=== PATIENT | female | born 1935 | race African-American/Black ===

== ENCOUNTER 2022-01-30 15:02 | Emergency (ER) | payer MEDICARE, OTHER ==
[~2022-01-30] VITALS: Ht 160 cm; Wt 75.0 kg
[2022-01-30 16:38] LABS: BASOPHILS % 0.7 % (0.0-2.0); HEMATOCRIT. 34.8 % (36.0-48.0); HEMOGLOBIN. 11.3 g/dL (12.0-16.0); LYMPHOCYTES % 32.4 % (20.0-50.0); MEAN PLATELET VOLUME 8.3 fl (7.4-10.4); MONOCYTES % 8.2 % (2.0-8.0); NEUTROPHILS % 57.7 % (40.0-76.0); PLATELET 284 x1000/uL (130-400); RED BLOOD CELL COUNT 3.91 mill/uL (4.2-5.4); RED CELL DISTRIBUTION WIDTH 17.4 % (11.6-14.6)
[2022-01-30 16:39] LABS: CHLORIDE 106 mEq/L (98-107)
[2022-01-30 18:32] VITALS: BP 167/72
== END 2022-01-30 18:48 | disposition home or self-care (01) ==
LOC: ER 15:15
DX: S22.32XA Fracture of one rib, left side, initial encounter for closed fracture (principal); I48.91 Unspecified atrial fibrillation; M19.90 Unspecified osteoarthritis, unspecified site; I10 Essential (primary) hypertension; W18.2XXA Fall in (into) shower or empty bathtub, initial encounter; Y93.89 Activity, other specified; Y92.9 Unspecified place or not applicable
CPT/HCPCS: 36415; 71250; 80053; 84484; 85025; 93005; 99285